=== PATIENT | female | born 1955 | race African-American/Black ===

== ENCOUNTER 2018-08-23 22:27 | Emergency (ER) | payer SELFPAY | END 2018-08-23 22:40 | disposition left against medical advice (07) | LOC: ER 22:27 | DX: Z53.20 Procedure and treatment not carried out because of patient's decision for unspecified reasons (principal) ==

== ENCOUNTER 2018-08-23 22:33 | Emergency (ER) | payer MEDICARE, MEDICAID ==
[2018-08-23] MEDS ORDERED: CEPHALEXIN 500 MG CAPSULE PO STA (22:46)
[2018-08-23] MEDS ORDERED: Diph,Pert(Acell),Tet Vac 0.5 ML SYR IM ONE (22:46)
--- NOTE | 2018-08-23 22:49 | Emergency Department Record ---
History of Present Illness - General Chief Complaint: Wound, puncture Stated Complaint: STEPPED ON A NAIL Time Seen by Provider: 08/23/18 22:42 Source: Patient Mode of Arrival: Ambulatory Limitations: No limitations - History of Present Illness Initial Commments: The patient is here due to stepping on a nail about 3 hours ago with her L foot. It did go thru her shoe and was removed from the shoe and foot in one piece. The patient is not sure how deep it went in and is having mild pain with walking. She believes she needs a Td shot. Onset/Timin -: Hour(s) Place: Outdoors Context: Accidental Associated Symptoms: None - Related Data Previous Rx's Medication Instructions Recorded Cephalexin [Keflex] 500 mg PO QID #28 cap 08/23/18 Allergies Allergy/AdvReac Type Severity Reaction Status Date / Time aloe AdvReac ITCHING Verified 08/23/18 22:37 Sulfa (Sulfonamide AdvReac ITCHING Verified 08/23/18 22:37 Antibiotics) Travel Screening - Travel/Exposure Within Last 30 Days Have you traveled within the last 30 days?: No Review of Systems Constitutional: Denies: Chills, Fever Past Medical History - SOCIAL HISTORY Smoking Status: Never smoker Alcohol Use: None Drug Use: None - RESPIRATORY Hx Respiratory Disorders: No - CARDIOVASCULAR Hx Cardio Disorders: No - NEURO Hx Neuro Disorders: No - GI Hx GI Disorders: No - Hx Genitourinary Disorders: No - ENDOCRINE Hx Endocrine Disorders: No - MUSCULOSKELETAL Hx Musculoskeletal Disorders: No - PSYCH Hx Psych Problems: No - HEMATOLOGY/ONCOLOGY Hx Hematology/Oncology Disorders: No Family Medical History Any Significant Family History?: No Physical Exam - General General Appearance: Alert, Cooperative, No acute distress - Head Head exam: Atraumatic, Normocephalic - Extremities Extremities exam: Full ROM, Tenderness (minimal around the PW.), Other (The L foot is NVI.). negative: Normal inspection (There is a 2 mm PW to the distal plantar surface of the L foot. There is no bleeding or swelling but there is mild pain to palpation.), Calf tenderness, Pedal edema Image of Feet: 1 - Area of PW. - Neurological Neurological exam: Alert, Normal gait, Oriented X3. negative: Abnormal gait, Altered, Motor sensory deficit Course Vital Signs 08/23/18 22:36 Temperature 98.8 F Pulse Rate [ 106 H Left] Respiratory 16 Rate Blood Pressure 167/97 [Left Arm] Pulse Ox 96 - Reevaluation(s) Reevaluation #1: The L foot PW was cleansed with Hibiclens and covered. I did recommend anesthetizing the PW and opening up the wound to wash it out but the patient is refusing. I did explain by NOT numbing and opening up the wound to wash it out the patient will have a higher risk of foot infection, cellulitis, osteomyelitis and chronic pain. The patient understands the risks and still is refusing the recommendation. 08/23/18 23:03 Disposition Disposition: Discharge Clinical Impression: Puncture wound of plantar aspect of foot Qualifiers: Encounter type: initial encounter Laterality: left Qualified Code(s): S91.332A - Puncture wound without foreign body, left foot, initial encounter Disposition: Home, Self-Care Condition: (2) Stable Instructions: Puncture Wound (ED) Additional Instructions: Please keep the wound covered with a band aid and dry for 2 days and elevate when possible. Take the Keflex as directed. Please see your family doctor for any problems this next week. Return to the ER for any worsening pain, fever, swelling, drainage or any other signs of infection. Prescriptions: Cephalexin [Keflex] 500 mg PO QID #28 cap Forms: Patient Portal Access Time of Disposition: 23:01 Quality - Quality Measures Quality Measures: N/A - Blood Pressure Screening View Details: Yes Does Patient Have Any of the Following: No Blood Pressure Classification: Hypertensive Reading Systolic Measurement: 167 Diastolic Measurement: 97 Screening for High Blood Pressure: < First Hypertensive BP, F/U Documented > [[id number]] First Hypertensive Follow-up Interventions: Referral to alternative/primary care provider.
== END 2018-08-23 23:06 | disposition home or self-care (01) ==
LOC: ER 22:33
DX: S91.332A Puncture wound without foreign body, left foot, initial encounter (principal); W45.0XXA Nail entering through skin, initial encounter; Y92.89 Other specified places as the place of occurrence of the external cause
CPT/HCPCS: 90715; 96372; 99282; 99283